=== PATIENT | female | born 1995 | race Two or more races ===

== ENCOUNTER 2018-06-29 13:37 | Inpatient (IN) | payer OTHER ==
[2018-06-29 14:10] VITALS: BMI 18.4
--- NOTE | 2018-06-29 15:45 | HP ---
COWS - Scale Resting Pulse: 0= [place] 80 or Below Sweatin= Chills/Flushing Restless Observation: 3= Extraneous Movement Pupil Size: 1= Pupils >than Normal Bone or Joint Aches: 2= Severe Diffuse Aches Runny Nose/ Eye Tearin= Runny Nose/Eyes GI Upset > 30mins: 2= Nausea/Diarrhea Tremor Observation: 2= Slight Tremor Visible Yawning Observation: 1= 1-2x During Session Anxiety or Irritability: 2=Irritable/Anxious Goose Flesh Skin: 0=Smooth Skin COWS Score: 16 Admission ROS S - HPI Chief Complaint: i need help to stop using heroin,cocaine,marijuana, Allergies/Adverse Reactions: Allergies Allergy/AdvReac Type Severity Reaction Status Date / Time penicillin G Allergy Severe Hives Verified 07/01/18 05:15 History of Present Illness: this 22 years old female with heroin,cocaine,marijuana dependence,seeking detox, withdrawal symptom, last detox 06/21/18 not completed,left on 06/22/18 anxiety.depression,insomnia weight loss injury to right ankle last week with scab formation and cellulitis s/p surgery for abscess of left hip 01/10 nicotine dependence Exam Limitations: No Limitations - Ebola screening Have you traveled outside of the country in the last 21 days: No Have you had contact with anyone from an Ebola affected area: No Have you been sick,other than usual withdrawal symptoms: No Do you have a fever: No - Review of Systems Constitutional: Chills, Loss of Appetite, Night Sweats, Changes in sleep, Unintentional Wgt. Loss EENT: reports: Tearing, Nose Congestion Respiratory: reports: No Symptoms reported Cardiac: reports: No Symptoms Reported GI: reports: Diarrhea, Nausea, Vomiting : reports: No Symptoms Reported Musculoskeletal: reports: Back Pain, Joint Pain, Muscle Pain, Joint Stiffness Integumentary: reports: Dryness Neuro: reports: Headache, Tremors Endocrine: reports: No Symptoms Reported Hematology: reports: No Symptoms Reported Psychiatric: reports: No Sypmtoms Reported, Judgement Intact, Mood/Affect Appropiate, Orientated x3 (anxiety,depression,), Agitated, Anxious, Depressed Patient History - Patient Medical History Hx Anemia: No Hx Asthma: No Hx Chronic Obstructive Pulmonary Disease (COPD): No Hx Cancer: No Hx Cardiac Disorders: No Hx Congestive Heart Failure: No Hx Hypertension: No Hx Hypercholesterolemia: No Hx Pacemaker: No HX Cerebrovascular Accident: No Hx Seizures: No Hx Dementia: No Hx Diabetes: No Hx Gastrointestinal Disorders: No Hx Liver Disease: No Hx Genitourinary Disorders: No Hx Sexually Transmitted Disorders: No Hx Renal Disease (ESRD): No Hx Thyroid Disease: No Hx Human Immunodeficiency Virus (HIV): No (last 01/10 negative) Hx Hepatitis C: No Hx Depression: Yes Hx Suicide Attempt: No Hx Bipolar Disorder: No Hx Schizophrenia: No Other Medical History: anxiet,depression,no suicidal,no homicidal - Patient Surgical History Past Surgical History: Yes Other Surgical History: s/p surgery for abscess left thigh - PPD History Previous Implant?: Yes Documented Results: Negative w/o proof Implanted On Prior R Admission?: No PPD to be Administered?: Yes - Reproductive History Patient is a Female of Child Bearing Age (11 -55 yrs old): Yes Last Menstrual Period: 06/11/18 Patient : No - Smoking Cessation Smoking history: Current every day smoker Have you smoked in the past 12 months: Yes Aproximately how many cigarettes per day: 20 Hx Chewing Tobacco Use: No Initiated information on smoking cessation: Yes 'Breaking Loose' booklet given: 06/29/18 - Substance & Tx. History Hx Alcohol Use: No Hx Substance Use: Yes Substance Use Type: Cocaine, Heroin, Tranquilizers Hx Substance Use Treatment: Yes (06/21/18 to 06/22/18 in [place] not completed) - Substances Abused Heroin Route: Injection Frequency: Daily Amount used: 20-30 bags Age of first use: 16 Date of Last Use: 06/29/18 Cocaine Route: Injection Frequency: Daily Amount used: $400 Age of first use: 12 Date of Last Use: 06/27/18 Marijuana Route: Smoking Frequency: Daily Amount used: $100 Age of first use: 9 Date of Last Use: 06/29/18 Family Disease History - Family Disease History Family History: Denies Admission Physical Exam S - Vital Signs Vital Signs: Vital Signs - 24 hr 06/29/18 13:57 Temperature 97.2 F L Pulse Rate 68 Respiratory 18 Rate Blood Pressure 133/77 - Physical General Appearance: Yes: Moderate Distress, Tremorous, Irritable, Sweating, Anxious HEENTM: Yes: Normal ENT Inspection, PIYUSH, Pharynx Normal, Nasal Congestion, Rhinorrhea Respiratory: Yes: Within Normal Limits, Lungs Clear, Normal Breath Sounds Neck: Yes: Within Normal Limits, Supple, Trachea in good position Breast: Yes: Breast Exam Deferred Cardiology: Yes: Within Normal Limits, Regular Rhythm, Regular Rate, S1, S2 Abdominal: Yes: Within Normal Limits, Normal Bowel Sounds, Non Tender, Flat Back: Yes: Muscle Spasm Musculoskeletal: Yes: Back pain, Joint Stiffness, Muscle Pain Extremities: Yes: Within Normal Limits, Normal Range of Motion, Tremors Neurological: Yes: supervisor braiding II-XII NML intact, Fully Oriented, Alert, Motor Strength 5/5 Integumentary: Yes: Dry, Track Miranda (scab formation with cellulitis of right ankle) Lymphatic: Yes: Within Normal Limits - Diagnostic (1) Opioid dependence with withdrawal Current Visit: No Status: Acute (2) Cocaine dependence Current Visit: Yes Status: Acute (3) Cannabis dependence Current Visit: Yes Status: Acute (4) Cellulitis Current Visit: Yes Status: Acute Qualifiers: Site of cellulitis of extremity: lower extremity (5) Insomnia secondary to depression with anxiety Current Visit: Yes Status: Acute (6) IV drug abuse Current Visit: No Status: Acute (7) Weight loss Current Visit: Yes Status: Acute Cleared for Admission [facility] - Detox or Rehab [facility] Level of Care: Medically Managed Detox Regimen/Protocol: Methadone [facility] Breath Alcohol Content Breath Alcohol Content: 0 Urine Pregancy Test - Result Urine Test Results: Negative- NO Line Present Urine Drug Screen - Results Drug Screen Negative: No Urine Drug Screen Results: THC-Marijuana, RISA-Cocaine, OPI-Opiates, BZO- Benzodiazepines, MTD-Methadone, OXY-Oxycodone, FEN-Fentanyl
[2018-06-29] MEDS ORDERED: MENTHOL/PHENOL 1 EACH UD MM PRN (15:59)
[2018-06-29] MEDS ORDERED: guaiFENesin/D-METHORPHAN HB 10 ML UNIT-DOSE CUPS PO PRN (15:59)
[2018-06-29] MEDS ORDERED: LOPERAMIDE HCL 2 MG CAPSULE PO PRN (15:59)
[2018-06-29] MEDS ORDERED: IBUPROFEN 400 MG TABLET (FP) PO PRN (15:59)
[2018-06-29] MEDS ORDERED: MAGNESIUM CITRATE 300 ML BOTTLE PO PRN (15:59)
[2018-06-29] MEDS ORDERED: MAGNESIUM HYDROX 2400MG/30ML ORAL SUSPENSION 30 ML CUP PO PRN (15:59)
[2018-06-29] MEDS ORDERED: P-EPHED 60MG/TRIPROLIDI 2.5MG TABLET PO PRN (15:59)
[2018-06-29] MEDS ORDERED: MAG HYDROX/AL HYDROX/SIMETH 30 ML UNIT-DOSE CUP PO PRN (15:59)
[2018-06-29] MEDS ORDERED: METHADONE HCL 10 MG TABLET (FOR DETOX USE ONLY) PO ONE ×2 (17:00→23:00)
[2018-06-29] MEDS: NICOTINE 21 MG/24 HOURS TOPICAL PATCH TD SCH (18:04)
[2018-06-29] MEDS: diazePAM 5 MG TABLET PO PRN ×2 (18:06→22:32)
[2018-06-29] MEDS ORDERED: MELATONIN 5 MG TABLETS PO PRN (22:00)
[2018-06-29] MEDS: THIAMINE HCL 100 MG TABLET (FP) PO SCH (22:31)
[2018-06-29] MEDS: BACITRACIN 15 GM TUBE TOPICAL OINTMENT TP SCH (22:32)
[2018-06-29] MEDS: SULFAMETHOXAZOLE/TRIMETHOPRIM 800MG/160MG D.S. TABLET PO SCH (22:32)
[2018-06-29] MEDS: ACETAMINOPHEN 325 MG TABLET (FP) PO PRN (23:49)
[2018-06-29] MEDS: hydrOXYzine PAMOATE 25 MG CAPSULE (FP) PO PRN (23:49)
[2018-06-30] MEDS: diazePAM 5 MG TABLET PO PRN ×5 (03:19→23:09)
[2018-06-30] MEDS: ACETAMINOPHEN 325 MG TABLET (FP) PO PRN (03:20)
[2018-06-30] MEDS: hydrOXYzine PAMOATE 25 MG CAPSULE (FP) PO PRN ×3 (04:50→22:17)
[2018-06-30] MEDS ORDERED: cloNIDine HCL 0.1 MG TABLET PO ONE (08:26)
[2018-06-30] MEDS ORDERED: BACITRACIN 0.9 GM PACKET ONE (09:26)
--- NOTE | 2018-06-30 09:53 | PN ---
[facility] COWS - Scale Resting Pulse: 0= [place] 80 or Below Sweatin= Chills/Flushing Restless Observation: 1= Difficult to Sit Still Pupil Size: 2= Moderately Dilated Bone or Joint Aches: 2= Severe Diffuse Aches Runny Nose/ Eye Tearin= Runny Nose/Eyes GI Upset > 30mins: 1= Stomach Cramp Tremor Observation of Outstretched Hands: 2= Slight Tremor Visible Yawning Observation: 1= 1-2x During Session Anxiety or Irritability: 2=Irritable/Anxious Goose Flesh Skin: 0=Smooth Skin COWS Score: 14 [facility] Progress Note (SOAP) Subjective: PATIENT C/O BODY ACHES, DIARRHEA, SHAKES, SWEATING. Objective: 06/30/18 09:51 Vital Signs Temperature 97.9 F 06/30/18 06:00 Pulse Rate 46 L 06/30/18 06:00 Respiratory Rate 20 06/30/18 06:00 Blood Pressure 109/54 L 06/30/18 06:00 O2 Sat by Pulse Oximetry (%) ALERT AND ORIENTED ANXIOUS, PACING IN HALLWAY SKIN +MOISTURE EXT FULL ROM, NO EDEMA AMB AD LOLIS REPEAT V/S BP 105/55, HR 64 Assessment: 06/30/18 09:53 WITHDRAWAL SYNDROME Plan: DETOX ORDERED CLONIDINE 0.1MG PO ONCE ENCOURAGE ORAL FLUIDS CONTINUE TO MONITOR CLINICALLY
[2018-06-30] MEDS ORDERED: METHADONE HCL 10 MG TABLET (FOR DETOX USE ONLY) PO ONE (10:00)
[2018-06-30 10:20] LABS: HEMATOCRIT 36.5 % (32.4-45.2); HEMOGLOBIN 11.8 GM/dL (10.7-15.3); MCH 26.6 pg (25.7-33.7); MCHC 32.3 g/dl (32.0-36.0); MEAN CELL VOLUME 82.3 fl (80-96); MEAN PLT VOLUME 7.2 fl (7.5-11.1); PLATELET COUNT 307 K/MM3 (134-434); RBC 4.43 M/mm3 (3.60-5.2); RDW 15.2 % (11.6-15.6); WHITE BLOOD COUNT 6.5 K/mm3 (4.0-10.0)
[2018-06-30] MEDS: BACITRACIN 15 GM TUBE TOPICAL OINTMENT TP SCH ×2 (10:26→23:10)
[2018-06-30] MEDS: PRENATAL VITAMINS W/ FOLIC ACID TABLET (FP) PO SCH (10:27)
[2018-06-30] MEDS: SULFAMETHOXAZOLE/TRIMETHOPRIM 800MG/160MG D.S. TABLET PO SCH ×2 (10:27→22:18)
[2018-06-30] MEDS: NICOTINE 21 MG/24 HOURS TOPICAL PATCH TD SCH (10:30)
[2018-06-30 10:41] LABS: URINE APPEARANCE SLCLOUDY; URINE BILIRUBIN NEGATIVE (<2.0 mg/dL); URINE COLOR YELLOW; URINE GLUCOSE (UA) NEGATIVE (NEGATIVE); URINE KETONE NEGATIVE (NEGATIVE); URINE LEUK ESTERASE NEGATIVE (NEGATIVE); URINE NITRITE NEGATIVE (NEGATIVE); URINE PROTEIN NEGATIVE (NEGATIVE)
[2018-06-30 11:10] LABS: ALBUMIN 3.4 g/dl (3.4-5.0); ALK PHOS 86 U/L (45-117); ANION GAP 7 MMOL/L (8-16); BILIRUBIN,TOTAL 0.4 mg/dL (0.2-1); BLOOD UREA NITROGEN 7 mg/dL (7-18); CALCIUM 8.8 mg/dL (8.5-10.1); CHLORIDE 103 mmol/L (98-107); CO2 27 mmol/L (21-32); CREATININE 0.7 mg/dL (0.55-1.3); GLUCOSE,RANDOM 82 mg/dL (74-106); POTASSIUM 3.7 mmol/L (3.5-5.1); SGOT/AST 13 U/L (15-37); SGPT/ALT 15 U/L (13-61); SODIUM 138 mmol/L (136-145); TOT PROT 7.6 g/dl (6.4-8.2)
[2018-06-30] MEDS ORDERED: FLU VACCINE QUAD 60 MCG/0.5 ML (MDV 18-19) IM ONE (12:00)
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
--- NOTE | 2018-06-30 17:29 | EKG ---
Test Reason : Blood Pressure : / mmHG Vent. Rate : 068 BPM Atrial Rate : 068 BPM P-R Int : 148 ms QRS Dur : 084 ms QT Int : 390 ms P-R-T Axes : 033 062 037 degrees QTc Int : 414 ms NORMAL SINUS RHYTHM NORMAL ECG NO PREVIOUS ECGS AVAILABLE CLINICAL CORRELATION IS RECOMMENDED Confirmed by MARLINE PADILLA, ANTWON ([id number]) on 06/30/2018 5:29:47 PM Referred By: Confirmed By:ANTWON HORAN MD
[2018-06-30] MEDS: NICOTINE POLACRILEX 2 MG GUM BC PRN (17:50)
--- NOTE | 2018-06-30 18:04 | PN ---
[facility] Progress Note Note: Informed by ANNABELLE Coker that patient states has a hx of seizure for which she takes Keppra and Gabapentin. Pt admits to not telling anyone prior to now, stated "I did not want it to be an issue for me not to get in". Pt was educated that Seizure is not a contr indication for detox. Keppra and Gabapentin will be ordered and Keppra level checked in the morning.
[2018-06-30] MEDS: QUEtiapine FUMARATE 100 MG TABLET (FP) PO SCH (22:17)
[2018-06-30] MEDS: GABAPENTIN 300 MG CAPSULE (FP) PO SCH (22:17)
[2018-06-30] MEDS: levETIRAcetam 500 MG TABLET (FP) PO SCH (22:17)
[2018-06-30] MEDS: THIAMINE HCL 100 MG TABLET (FP) PO SCH (23:10)
[2018-06-30] MEDS ORDERED: LORazepam 2 MG/ML SDV VIAL ONE (23:42)
--- NOTE | 2018-07-01 00:10 | PN ---
[facility] Progress Note Note: Patient identified earlier today w/ a hx of seizures and non-compliance w/ Keppra. Patient received one dose Keppra earlier today. Patient received valium at 23:09 as part of standard medications, prior to initial seizure. Responded to rapid response to see patient. Patient had a seizure prior to arrival and then patient had an additional six witnessed tonic/clonic seizures, each lasting approximately 15 seconds, within a 30 min time span. Was immediately alert during the post-ictal phase. Vital Signs 06/30/18 06/30/18 17:12 22:59 Temperature 97.9 F 98.9 F Pulse Rate 65 87 Respiratory 18 18 Rate Blood Pressure 125/76 131/90 Blood pressure during seizure activity w/o appreciable increase. O2 sat = 99%. BGM= 103. EMS medicated patient w/ Versed and transported to [facility]. Patient was alert and cooperative at time of transport. Report given to Dr. Beverly at [facility].
[2018-07-01] MEDS ORDERED: METHADONE HCL 5 MG TABLET (FOR DETOX USE ONLY) PO ONE (10:00)
[2018-07-01] MEDS: PRENATAL VITAMINS W/ FOLIC ACID TABLET (FP) PO SCH (10:03)
[2018-07-01] MEDS: BACITRACIN 15 GM TUBE TOPICAL OINTMENT TP SCH ×2 (10:03→22:27)
[2018-07-01] MEDS: SULFAMETHOXAZOLE/TRIMETHOPRIM 800MG/160MG D.S. TABLET PO SCH ×2 (10:04→22:22)
[2018-07-01] MEDS: diazePAM 5 MG TABLET PO PRN ×3 (10:04→20:05)
[2018-07-01] MEDS: GABAPENTIN 300 MG CAPSULE (FP) PO SCH ×2 (10:04→22:22)
[2018-07-01] MEDS: levETIRAcetam 500 MG TABLET (FP) PO SCH ×2 (10:04→22:22)
[2018-07-01] MEDS: NICOTINE 21 MG/24 HOURS TOPICAL PATCH TD SCH (10:07)
[2018-07-01] MEDS ORDERED: BACLOFEN 10 MG TABLET (FP) PO ONE (10:33)
[2018-07-01] MEDS ORDERED: cloNIDine HCL 0.1 MG TABLET PO ONE (11:59)
[2018-07-01] MEDS: hydrOXYzine PAMOATE 25 MG CAPSULE (FP) PO PRN ×2 (12:00→20:05)
--- NOTE | 2018-07-01 15:08 | PN ---
S COWS - Scale Resting Pulse: 1= RI 81-100 Sweatin= Chills/Flushing Restless Observation: 1= Difficult to Sit Still Pupil Size: 1= Pupils >than Normal Bone or Joint Aches: 2= Severe Diffuse Aches Runny Nose/ Eye Tearin= Runny Nose/Eyes GI Upset > 30mins: 1= Stomach Cramp Tremor Observation of Outstretched Hands: 2= Slight Tremor Visible Yawning Observation: 1= 1-2x During Session Anxiety or Irritability: 1=Feels Anxious/Irritable Goose Flesh Skin: 0=Smooth Skin COWS Score: 13 S Progress Note (SOAP) Subjective: joints pain body aches sweat tremor Objective: 07/01/18 15:07 Vital Signs Temperature 98.2 F 07/01/18 14:32 Pulse Rate 92 H 07/01/18 14:32 Respiratory Rate 18 07/01/18 14:32 Blood Pressure 117/66 07/01/18 14:32 O2 Sat by Pulse Oximetry (%) Laboratory Last Values WBC 6.5 K/mm3 (4.0-10.0) 06/30/18 08:00 RBC 4.43 M/mm3 (3.60-5.2) 06/30/18 08:00 Hgb 11.8 GM/dL (10.7-15.3) 06/30/18 08:00 Hct 36.5 % (32.4-45.2) 06/30/18 08:00 MCV 82.3 fl (80-96) 06/30/18 08:00 MCH 26.6 pg (25.7-33.7) 06/30/18 08:00 MCHC 32.3 g/dl (32.0-36.0) 06/30/18 08:00 RDW 15.2 % (11.6-15.6) 06/30/18 08:00 Plt Count 307 K/MM3 (134-434) 06/30/18 08:00 MPV 7.2 fl (7.5-11.1) L 06/30/18 08:00 Sodium 138 mmol/L (136-145) 06/30/18 08:00 Potassium 3.7 mmol/L (3.5-5.1) 06/30/18 08:00 Chloride 103 mmol/L (98-107) 06/30/18 08:00 Carbon Dioxide 27 mmol/L (21-32) 06/30/18 08:00 Anion Gap 7 MMOL/L (8-16) L 06/30/18 08:00 BUN 7 mg/dL (7-18) 06/30/18 08:00 Creatinine 0.7 mg/dL (0.55-1.3) 06/30/18 08:00 Creat Clearance w eGFR > 60 (>60) 06/30/18 08:00 POC Glucometer 103 UNITS (80-120) 06/30/18 23:42 Random Glucose 82 mg/dL (74-106) 06/30/18 08:00 Calcium 8.8 mg/dL (8.5-10.1) 06/30/18 08:00 Total Bilirubin 0.4 mg/dL (0.2-1) 06/30/18 08:00 AST 13 U/L (15-37) L 06/30/18 08:00 ALT 15 U/L (13-61) 06/30/18 08:00 Alkaline Phosphatase 86 U/L (45-117) 06/30/18 08:00 Total Protein 7.6 g/dl (6.4-8.2) 06/30/18 08:00 Albumin 3.4 g/dl (3.4-5.0) 06/30/18 08:00 Urine Color Yellow 06/29/18 21:20 Urine Appearance Slcloudy 06/29/18 21:20 Urine pH 6.0 (5.0-8.0) 06/29/18 21:20 Ur Specific [place] 1.023 (1.010-1.035) 06/29/18 21:20 Urine Protein Negative (NEGATIVE) 06/29/18 21:20 Urine Glucose (UA) Negative (NEGATIVE) 06/29/18 21:20 Urine Ketones Negative (NEGATIVE) 06/29/18 21:20 Urine Blood Negative (NEGATIVE) 06/29/18 21:20 Urine Nitrite Negative (NEGATIVE) 06/29/18 21:20 Urine Bilirubin Negative (<2.0 mg/dL) 06/29/18 21:20 Urine Urobilinogen 2.0 mg/dL (0.2-1.0) H 06/29/18 21:20 Ur Leukocyte Esterase Negative (NEGATIVE) 06/29/18 21:20 RPR Titer Nonreactive (NONREACTIVE) 06/30/18 08:00 lab noted Assessment: 07/01/18 15:08 withdrawal sx Plan: continue detox
--- NOTE | 2018-07-01 15:13 | PN ---
[facility] Progress Note Note: around 1430 patient had seizure fall on the floor total 7 seizure few seconds each and few seconds in between ativan 2 mg IM given ambulance called and attempted to give report to the ERfrom 1513 pm to according to the roommate that the patient fell on the floor face down no visible injury noted, recommendation: 1. move room near nurse station 2. fall protocol #1
[2018-07-01] MEDS ORDERED: ZOLPIDEM TARTRATE 5 MG TABLET PO PRN (20:33)
[2018-07-01] MEDS: QUEtiapine FUMARATE 100 MG TABLET (FP) PO SCH (22:22)
[2018-07-01] MEDS: THIAMINE HCL 100 MG TABLET (FP) PO SCH (22:22)
[2018-07-02] MEDS ORDERED: LORazepam 2 MG/ML SDV VIAL IM ONE ×2 (00:58→04:55)
--- NOTE | 2018-07-02 01:30 | PN ---
[facility] Progress Note Note: MD'S NOTE: CALLED TO SEE THE PT. AT ABOUT 12:50AM WHO CLAIMS THAT SHE IS HAVING SEIZURES VERY FREQUENTLY AND INSISTS THAT SHE NEEDS ATIVAN BY IV/IM VERY FREQUENTLY. O/E: THE PT. IS MORALES X 3 AND NOT IN DISTRESS. SITTING ON THE CHAIR COMFORTABLY AND TALKING. SUDDENLY, SHE HAD AN EPISODE OF "SEIZURE" ACTIVITY THAT LASTED FOR ABOUT 1 MINUTE AND SHE GAINED FULL CONSCIOUSNESS, STOOD UP AND STARTED TALKING IMMEDIATELY! SINCE SIMILAR EPISODES ARE HAPPENING SEVERAL TIMES, SHE HAS BEEN TRANSFERRED TO THE ER AFTER CALLING 911 FOR CLOSE MONITORING. IMPRESSION: PSEUDO/WITHDRAWAL SEIZURES PLANS: DR. MOSS (ER ATTENDING) WAS MADE AWARE OF THE EVENTS FOR FURTHER MANAGEMENT. PROVIDER: ABDULKADIR GARCES MD
[2018-07-02] MEDS: hydrOXYzine PAMOATE 25 MG CAPSULE (FP) PO PRN (07:18)
[2018-07-02] MEDS ORDERED: CYCLOBENZAPRINE HCL 5 MG TABLET PO SCH (07:30)
[2018-07-02] MEDS ORDERED: hydrOXYzine PAMOATE 50 MG CAPSULE (FP) PO PRN (07:40)
[2018-07-02] MEDS: diazePAM 5 MG TABLET PO PRN ×2 (08:55→13:59)
[2018-07-02] MEDS: NICOTINE POLACRILEX 2 MG GUM BC PRN (08:57)
--- NOTE | 2018-07-02 08:59 | PN ---
Psychiatric Progress Note Vital Signs: Vital Signs Period Temp Pulse Resp BP Sys/Amaro Pulse Ox Last 24 Hr 98.1 F-98.6 F 74-95 18-22 102-123/65-93 Date of Session: 07/02/18 Chief Complaint:: Anxiety, irritability, insomnia HPI: Patient anxious, reports severe anxiety, restlessness, irritability, insomnia, asking for Ambien order and medications for anxiety. Denies suicidal , homicidal ideations. Patient with history of Seizures. Current Medications: Active Medications Generic Name Dose Route Start Last Admin Trade Name Freq PRN Reason Stop Dose Admin Acetaminophen 650 mg 06/29/18 15:59 06/30/18 03:20 Tylenol - PO 650 mg Q4H PRN Administration FEVER Al Hydroxide/Mg Hydroxide 30 ml 06/29/18 15:59 Mylanta Oral Suspension - PO Q6H PRN DYSPEPSIA Bacitracin 1 applic 06/29/18 22:00 07/01/18 22:27 Bacitracin - TP 1 applic BID ANTHONY Administration Cyclobenzaprine HCl 5 mg 07/02/18 07:30 Cyclobenzaprine Hcl PO PRN ANTHONY Diazepam 10 mg 06/29/18 15:59 07/02/18 08:55 Valium - PO 07/02/18 15:58 10 mg Q4H PRN Administration WITHDRAWAL(CONT SUBST) Duloxetine HCl 40 mg 07/02/18 10:00 Cymbalta - PO DAILY ANTHONY Eucalyptus/Menthol/Phenol/Sorbitol 1 each 06/29/18 15:59 Cepastat Lozenge - MM Q4H PRN SORE THROAT Gabapentin 300 mg 06/30/18 22:00 07/01/18 22:22 Neurontin - PO 300 mg BID ANTHONY Administration Guaifenesin 10 ml 06/29/18 15:59 Robitussin Dm - PO Q6H PRN COUGH Hydroxyzine Pamoate 50 mg 07/02/18 07:40 Vistaril - PO Q4H PRN AGITATION Ibuprofen 400 mg 06/29/18 15:59 06/29/18 18:03 Motrin - PO 400 mg Q6H PRN Administration PAIN LEVEL 4-6 Levetiracetam 500 mg 06/30/18 22:00 07/01/18 22:22 Keppra - PO 500 mg BID ANTHONY Administration Loperamide HCl 4 mg 06/29/18 15:59 Imodium - PO Q6H PRN DIARRHEA Magnesium Citrate 300 ml 06/29/18 15:59 Citroma - PO Q48H PRN CONSTIPATION Magnesium Hydroxide 30 ml 06/29/18 15:59 Milk Of Magnesia - PO DAILY PRN CONSTIPATION Melatonin 5 mg 06/29/18 22:00 06/29/18 23:49 Melatonin PO 5 mg HS PRN Administration INSOMNIA Methadone HCl 5 mg 07/04/18 06:00 Dolophine - PO 07/04/18 06:01 ONCE@0600 ONE Methadone HCl 15 mg 07/02/18 10:00 Dolophine - PO 07/02/18 10:01 ONCE ONE Methadone HCl 10 mg 07/03/18 10:00 Dolophine - PO 07/03/18 10:01 ONCE ONE Nicotine 21 mg 06/29/18 17:00 07/01/18 10:07 Nicoderm Patch - TD 21 mg DAILY ANTHONY Administration Nicotine Polacrilex 2 mg 06/29/18 15:59 06/30/18 17:50 Nicorette Gum - BC 2 mg Q2H PRN Administration NICOTINE REPLACEMENT RX Multivit/Folic Acid/Iron 1 tab 06/30/18 10:00 07/01/18 10:03 Vitamins (Sjr) - PO 1 tab DAILY ANTHONY Administration Pseudoephedrine/Triprolidine 1 combo 06/29/18 15:59 Actifed - PO TID PRN NASAL CONGESTION Quetiapine Fumarate 100 mg 07/02/18 14:00 Seroquel - PO TID ANTHONY Thiamine HCl 100 mg 06/29/18 22:00 07/01/18 22:22 Vitamin B1 - PO 100 mg HS ANTHONY Administration Trimethoprim/Sulfamethoxazole 1 each 06/29/18 22:00 07/01/18 22:22 Bactrim Ds - PO 1 each BID ANTHONY Administration Zolpidem Tartrate 10 mg 07/01/18 20:33 07/01/18 22:22 Ambien - PO 10 mg HS PRN Administration INSOMNIA Medication(s) Change(s): Cymbalta 40mg poqd. Seroquel 100mg po tid. Vistaril 50mg po prn q4 for anxiety Provider note:: Patient has been seeing by Dr. Mills on 06/30/18, has a history of Bipolar Disorder, reports lamotrigine 25 mg/day + citalopram 10 mg/day + clonazepam 0.5 mg/day on 05/10/18. NO refills afterwards. Ms Rocky marinoledges total non-adherence to psychiatric OPD care. Denies history of suicide attempts. Patient asking fort Valium and Ambien, loud, restless but redirectional and cooperative. Mental Status Exam - Mental Status Exam Alert and Oriented to: Person Cognitive Function: Fair Patient Appearance: Unkempt Mood: Anxious Affect: Labile Patient Behavior: Cooperative Speech Pattern: Appropriate Voice Loudness: Normal Thought Process: Goal Oriented Thought Disorder: Being Controlled Hallucinations: Denies Suicidal Ideation: Denies Homicidal Ideation: Denies Insight/Judgement: Fair Sleep: Difficulty falling asleep Appetite: Weight loss Muscle strength/Tone: Normal Gait/Station: Normal Additional Comments: Cymbalta 40mg poqd. Seroquel 100mg po tid. Vistaril 50mg po prn q4 for anxiety Psychiatric Treatment Plan - Problem List (1) Cannabis dependence Current Visit: Yes (2) Cocaine dependence Current Visit: Yes (3) Insomnia secondary to depression with anxiety Current Visit: Yes (4) Nicotine dependence Current Visit: Yes (5) Weight loss Current Visit: Yes (6) Alcohol dependence Current Visit: No Qualifiers: Substance use status: uncomplicated Qualified Code(s): F10.20 - Alcohol dependence, uncomplicated (7) Benzodiazepine dependence Current Visit: No (8) Opioid dependence with withdrawal Current Visit: No (9) Seizure Current Visit: No (10) Substance induced mood disorder Current Visit: No Initial treatment plan: Cymbalta 40mg poqd. Seroquel 100mg po tid. Vistaril 50mg po prn q4 for anxiety
[2018-07-02] MEDS ORDERED: BACITRACIN 0.9 GM PACKET TP SCH (10:00)
[2018-07-02] MEDS ORDERED: METHADONE HCL 5 MG TABLET (FOR DETOX USE ONLY) PO ONE (10:00)
[2018-07-02] MEDS ORDERED: DULoxetine HCL 20 MG CAPSULE.DR (FP) PO SCH (10:00)
[2018-07-02] MEDS: GABAPENTIN 300 MG CAPSULE (FP) PO SCH (10:21)
[2018-07-02] MEDS: PRENATAL VITAMINS W/ FOLIC ACID TABLET (FP) PO SCH (10:21)
[2018-07-02] MEDS: levETIRAcetam 500 MG TABLET (FP) PO SCH (10:21)
[2018-07-02] MEDS ORDERED: CYCLOBENZAPRINE HCL 5 MG TABLET PO PRN (10:23)
[2018-07-02] MEDS: SULFAMETHOXAZOLE/TRIMETHOPRIM 800MG/160MG D.S. TABLET PO SCH (10:23)
[2018-07-02] MEDS: NICOTINE 21 MG/24 HOURS TOPICAL PATCH TD SCH (10:24)
[2018-07-02 12:53] VITALS: BP 111/59; PULSE 92; TEMP 96.2
[2018-07-02] MEDS ORDERED: QUEtiapine FUMARATE 100 MG TABLET (FP) PO SCH (14:00)
--- NOTE | 2018-07-02 17:22 | DS ---
[facility] Detox Discharge Summary Admission Date: 06/29/18 Discharge Date: 07/02/18 - History Present History: Alcohol Dependence Additional Comments: 22 years old female admitted 06/29/18 for opiate withdrawal sx patient stated that she has seizure since age 14 denies head trauma denies alcohol related seizure treated with mary kwon admitted none adherence with the medication patient demands more valium before during and after the seizure multiple pseudo seizure , patient had pseudo seizure at the same time same place (her room) no visible injury noted, patient is alert deneis sucidal ideation denies homocidal ideation "I do not want to hurt myself, you can not stop my valiuim" it happed again around the same time after been told the volium prn ended today "You do not give me valium I am going to have seizure" patient walk back to her room one male patient yell out loud "she is having a seizur" observed patient laying on floor twisting, patient is able to carry conversation with the staff during and after the seizure team approach discuss unit rule and regulation about no physical contact patient continue demanding more valium, patient is out of control disturb therapeutic environment, disturb - Physical Exam Results Vital Signs: Vital Signs Temperature 96.2 F L 07/02/18 13:21 Pulse Rate 92 H 07/02/18 13:21 Respiratory Rate 20 07/02/18 13:21 Blood Pressure 111/59 L 07/02/18 13:21 O2 Sat by Pulse Oximetry (%) Pertinent Admission Physical Exam Findings: opkiate withdrawal sx Vital Signs Temperature 96.2 F L 07/02/18 13:21 Pulse Rate 92 H 07/02/18 13:21 Respiratory Rate 20 07/02/18 13:21 Blood Pressure 111/59 L 07/02/18 13:21 O2 Sat by Pulse Oximetry (%) Laboratory Tests 06/29/18 06/30/18 06/30/18 21:20 08:00 08:00 WBC 6.5 RBC 4.43 Hgb 11.8 Hct 36.5 MCV 82.3 MCH 26.6 MCHC 32.3 RDW 15.2 Plt Count 307 MPV 7.2 L Sodium 138 Potassium 3.7 Chloride 103 Carbon Dioxide 27 Anion Gap 7 L BUN 7 Creatinine 0.7 Creat Clearance w eGFR > 60 POC Glucometer Random Glucose 82 Calcium 8.8 Total Bilirubin 0.4 AST 13 L ALT 15 Alkaline Phosphatase 86 Total Protein 7.6 Albumin 3.4 Urine Color Yellow Urine Appearance Slcloudy Urine pH 6.0 Ur Specific [place] 1.023 Urine Protein Negative Urine Glucose (UA) Negative Urine Ketones Negative Urine Blood Negative Urine Nitrite Negative Urine Bilirubin Negative Urine Urobilinogen 2.0 H Ur Leukocyte Esterase Negative RPR Titer 06/30/18 06/30/18 08:00 23:42 WBC RBC Hgb Hct MCV MCH MCHC RDW Plt Count MPV Sodium Potassium Chloride Carbon Dioxide Anion Gap BUN Creatinine Creat Clearance w eGFR POC Glucometer 103 Random Glucose Calcium Total Bilirubin AST ALT Alkaline Phosphatase Total Protein Albumin Urine Color Urine Appearance Urine pH Ur Specific [place] Urine Protein Urine Glucose (UA) Urine Ketones Urine Blood Urine Nitrite Urine Bilirubin Urine Urobilinogen Ur Leukocyte Esterase RPR Titer Nonreactive lab noted - Treatment Hospital Course: Detox Protocol Followed, Responded well Patient has Accepted a Rehab Referral to: as per arranged by the counselor - Medication Discharge Medications: Ambulatory Orders Gabapentin 300 cap PO BID 06/30/18 Keppra - 500 tab PO BID 06/30/18 Duloxetine HCl [Cymbalta -] 30 mg PO BID #30 capsule. 07/02/18 Duloxetine HCl [Cymbalta -] 40 mg PO DAILY #30 capsule. 07/02/18 Duloxetine HCl [Cymbalta -] 40 mg PO ONCE #2 capsule. 07/02/18 Quetiapine Fumarate [Seroquel] 100 mg PO TID #90 tablet 07/02/18 Quetiapine Fumarate [Seroquel] 100 mg PO TID #90 tablet 07/02/18 Sulfamethoxazole/Trimethoprim [Bactrim DS -] 1 each PO BID #10 tablet 07/02/18 levETIRAcetam [Keppra -] 500 mg PO BID #60 tablet 07/02/18 - Diagnosis (1) Nicotine dependence Status: Acute Qualifiers: Nicotine product type: cigarettes Substance use status: in withdrawal Qualified Code(s): F17.213 - Nicotine dependence, cigarettes, with withdrawal (2) Opioid dependence with withdrawal Status: Acute (3) Weight loss Status: Acute - AMA Did Patient Leave Against Medical Advice: No
[2018-07-03] MEDS ORDERED: METHADONE HCL 10 MG TABLET (FOR DETOX USE ONLY) PO ONE (10:00)
[2018-07-04] MEDS ORDERED: METHADONE HCL 5 MG TABLET (FOR DETOX USE ONLY) PO ONE (06:00)
== END 2018-07-02 15:20 | disposition left against medical advice (07) | DRG 773 ==
LOC: YASAS 13:37 → Y6N 15:46
PROC: HZ2ZZZZ Detoxification Services for Substance Abuse Treatment (ICD-10-PCS; principal; 2018-06-29)
DX: F11.23 Opioid dependence with withdrawal (principal); F10.20 Alcohol dependence, uncomplicated; F13.20 Sedative, hypnotic or anxiolytic dependence, uncomplicated; F14.10 Cocaine abuse, uncomplicated; F12.20 Cannabis dependence, uncomplicated; F17.213 Nicotine dependence, cigarettes, with withdrawal; F19.24 Other psychoactive substance dependence with psychoactive substance-induced mood disorder; F51.05 Insomnia due to other mental disorder; F41.8 Other specified anxiety disorders; F32.9 Major depressive disorder, single episode, unspecified; G40.909 Epilepsy, unspecified, not intractable, without status epilepticus; L03.115 Cellulitis of right lower limb; R63.4 Abnormal weight loss; Z68.1 Body mass index [BMI] 19.9 or less, adult; Z88.0 Allergy status to penicillin; F91.8 Other conduct disorders; Z91.19 Patient's noncompliance with other medical treatment and regimen
CPT/HCPCS: 36415; 80053; 80177; 81003; 82962; 85027; 86593; 90688; 93005; 93010; G0008; J0475; J0735

== ENCOUNTER 2018-07-01 00:17 | Emergency (ER) | payer OTHER ==
[2018-07-01] MEDS ORDERED: levETIRAcetam 500 MG/5 ML INJECTION VIAL IVPB ONE ×2 (00:19→00:28)
[2018-07-01] MEDS ORDERED: FOLIC ACID INJECTION - 1 MG, THIAMINE HCL 100 MG, MULTIVIT INJECTION ADULT 10 ML in SOD... IVPB ONE (00:29)
--- NOTE | 2018-07-01 00:32 | PDOC ---
Attending Attestation - Resident Resident Name: Jovita Nunez - ED Attending Attestation I have performed the following: I have examined & evaluated the patient, The case was reviewed & discussed with the resident, I agree w/resident's findings & plan - HPI HPI: 07/01/18 01:52 Pt comes with "Seizures" x 6; easch lasting 10 seconds at the [facility] facility. 07/01/18 01:53 Pt has no seizures in the ER; whatever activity she is having, is accompanied by her getting up after the 10 seconds and demanding meds for her seizures. - Physicial Exam PE: 07/01/18 01:50 Agree with resident. Pt is afebrile. She has normal heart and lungs and soft abd. She has multiple tattoos and is afebrile. Pt is drowsy secondary to the 10 IM valium that was given to her by EMS en route to the ER. Labs yesterday at [facility] and today in the ER are normal. - Medical Decision Making 07/01/18 01:49 We witnessed pt's multiple pseudo seizures. She keeps asking for more benzos. Labs normal. She was loaded with IV keppra 1g and she is stable to return to [facility]. 07/01/18 01:54 Pt jumped out of bed multiple times. 07/01/18 02:32 Pt ambulating about trying to egt back to [facility]. We explained to her that and ambulance needs to take her there.
[2018-07-01] MEDS ORDERED: SODIUM CHLORIDE 0.9% 500 ML INFUS.BAG IV ONE (00:50)
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
[2018-07-01 01:02] LABS: BASO % 0.9 % (0-2.0); EOS % 2.9 % (0-4.5); HEMATOCRIT 36.4 % (32.4-45.2); HEMOGLOBIN 11.9 GM/dL (10.7-15.3); LYMPH % 41.1 % (8-40); MCH 26.9 pg (25.7-33.7); MCHC 32.7 g/dl (32.0-36.0); MEAN CELL VOLUME 82.1 fl (80-96); MEAN PLT VOLUME 7.1 fl (7.5-11.1); MONO % 8.5 % (3.8-10.2); NEUT % 46.6 % (42.8-82.8); PLATELET COUNT 336 K/MM3 (134-434); RBC 4.44 M/mm3 (3.60-5.2); RDW 15.1 % (11.6-15.6); WHITE BLOOD COUNT 6.1 K/mm3 (4.0-10.0)
[2018-07-01] MEDS ORDERED: LORazepam 2 MG/ML SDV VIAL ONE (01:02)
[2018-07-01 01:15] VITALS: BMI 40.6
[2018-07-01 01:16] LABS: INR 1.01 (0.83-1.09); PROTHROMBIN TIME (PATIENT) 11.9 SEC (9.7-13.0)
[2018-07-01 01:28] LABS: ALBUMIN 3.6 g/dl (3.4-5.0); ALK PHOS 92 U/L (45-117); ANION GAP 6 MMOL/L (8-16); BILIRUBIN,TOTAL 0.2 mg/dL (0.2-1); BLOOD UREA NITROGEN 6 mg/dL (7-18); CHLORIDE 104 mmol/L (98-107); CO2 29 mmol/L (21-32); CREATININE 0.8 mg/dL (0.55-1.3); GLUCOSE,RANDOM 83 mg/dL (74-106); SGOT/AST 15 U/L (15-37); SGPT/ALT 17 U/L (13-61); SODIUM 139 mmol/L (136-145); TOT PROT 8.2 g/dl (6.4-8.2)
[2018-07-01 02:49] VITALS: BP 110/78; PULSE 89; TEMP 98.5
--- NOTE | 2018-07-02 11:03 | EKG ---
Test Reason : Blood Pressure : / mmHG Vent. Rate : 088 BPM Atrial Rate : 088 BPM P-R Int : 128 ms QRS Dur : 086 ms QT Int : 384 ms P-R-T Axes : 044 052 040 degrees QTc Int : 464 ms NORMAL SINUS RHYTHM POSSIBLE LEFT ATRIAL ENLARGEMENT BORDERLINE ECG WHEN COMPARED WITH ECG OF 29-JUN-2018 17:18, NO SIGNIFICANT CHANGE WAS FOUND Confirmed by TATE AUGUST MD ([id number]) on 07/02/2018 11:03:36 AM Referred By: Confirmed By:TATE AUGUST MD
== END 2018-07-01 03:21 ==
LOC: JER 00:17
PROC: 3E033NZ Introduction of Analgesics, Hypnotics, Sedatives into Peripheral Vein, Percutaneous Approach (ICD-10-PCS; principal; 2018-07-01)
PROC: 3E033GC Introduction of Other Therapeutic Substance into Peripheral Vein, Percutaneous Approach (ICD-10-PCS; 2018-07-01)
DX: F11.23 Opioid dependence with withdrawal (principal); F10.230 Alcohol dependence with withdrawal, uncomplicated; F13.20 Sedative, hypnotic or anxiolytic dependence, uncomplicated; F12.20 Cannabis dependence, uncomplicated; F17.210 Nicotine dependence, cigarettes, uncomplicated; Z88.0 Allergy status to penicillin
CPT/HCPCS: 36415; 80053; 84703; 85025; 85610; 86850; 86900; 86901; 93005; 93010; 96374; 96375; 99283-25; J7030

== ENCOUNTER 2018-07-01 03:50 | Emergency (ER) | payer OTHER ==
--- NOTE | 2018-07-01 04:03 | PDOC ---
History of Present Illness - General Stated Complaint: SEIZURES Time Seen by Provider: 07/01/18 03:57 History Source: Patient, EMS Exam Limitations: No Limitations - History of Present Illness Initial Comments: 07/01/18 03:58 This is a 22 YOF with h/o seizure disorder (supposed to be taking Keppra) who returns to the ED just after discharge from our ED to [facility], now BIBEMS for repeated episodes of reported seizure-like activity. EMS was instructed by their fitting room supervisor to bring her back to the ED for the repeated episode. EMS notes non-traumatic episode which resolved spontaneously without medication en route. They deny any additional events while in the ambulance. The patient herself is agitated and uncooperative, states she wants to go back to [facility] or be discharged to outside. She is unsteady on her feet and refuses to go to hospital bed. Past History - Past Medical History Allergies/Adverse Reactions: Allergies Allergy/AdvReac Type Severity Reaction Status Date / Time penicillin G Allergy Severe Hives Verified 07/01/18 05:15 Home Medications: Ambulatory Orders Gabapentin 300 cap PO BID 06/30/18 Keppra - 500 tab PO BID 06/30/18 Anemia: No Asthma: No Cancer: No Cardiac Disorders: No CVA: No COPD: No CHF: No Dementia: No Diabetes: No GI Disorders: No Disorders: No HTN: No Hypercholesterolemia: No Kidney Stones: No Liver Disease: No Psychiatric Problems: Yes (DEPRESSION, BIPOLAR) Seizures: No Thyroid Disease: No - Surgical History Abdominal Surgery: No Appendectomy: No Cardiac Surgery: No Cholecystectomy: No Lung Surgery: No Neurologic Surgery: No Orthopedic Surgery: No - Reproductive History PID: No - Immunization History Immunization Up to Date: Yes - Suicide/Smoking/Psychosocial Hx Smoking History: Current every day smoker Have you smoked in the past 12 months: Yes Number of Cigarettes Smoked Daily: 20 'Breaking Loose' booklet given: 06/29/18 Hx Alcohol Use: No Drug/Substance Use Hx: Yes Substance Use Type: Cocaine, Heroin, Tranquilizers Hx Substance Use Treatment: Yes (06/21/18 to 06/22/18 in [place] not completed) Review of Systems - Review of Systems Able to Perform ROS?: Yes Constitutional: No: Chills, Fever, Unexplained wgt Loss HEENTM: No: Nose Congestion, Throat Pain Respiratory: No: Cough, Shortness of Breath Cardiac (ROS): No: Chest Pain, Palpitations ABD/GI: No: Constipated, Diarrhea, Nausea, Vomiting : No: Burning, Dysuria Musculoskeletal: No: Back Pain, Neck Pain Integumentary: No: Bruising, Rash Neurological: Yes: Seizure. No: Headache, Numbness, Tingling, Weakness Endocrine: No: Unexplained Weight Gain, Unexplained Weight Loss *Physical Exam - Vital Signs 07/01/18 04:48 Exam is unchanged from prior as follows: GENERAL: appears disheveled, a bit unkempt, thin but nourished, A/Ox4, no acute distress, speaking in full sentences but with slightly slurred speech, appears a bit intoxicated possibly d/t versed given previously, answers questions appropriately HEENT: PERRLA, EOMI, moist mucous membranes, no posterior pharyngeal erythema, no tonsillar swelling or exudates, no cervical lymphadenopathy NECK: No midline ttp, no spinal stepoff or deformity, full ROM, supple CARDIOVASCULAR: Regular rate and rhythm, normal S1S2, MGR, radial and DP pulses 2+ and symmetric, capillary refill <2 seconds, extremities warm and well- perfused Chest wall: Normal appearance, no rash, no bruising, no costal stepoff or deformity, nontender to compression LUNGS/RESPIRATORY: No respiratory distress, normal and symmetric chest movements during respirations, lungs CTA bilaterally, equal breath sounds, no cyanosis, no nail clubbing GI/ABDOMEN: Normal symmetric appearance, normoactive bowel sounds, soft, no tenderness to palpation, no midline pulsatile masses, no palpated organomegaly BACK: No midline ttp or stepoff or deformity of thoracic or lumbar spine EXTREMITIES: distal pulses 2+, warm and well-perfused, no LE edema SKIN: Track banerjee RUE, skin otherwise warm and dry, no pallor, no jaundice, no bruising, no rash, no skin breakdown, no cuts, no lesions NEUROLOGICAL: GCS 15, CN II-XII grossly intact, ambulating with a bit antalgic gait and unsteady on her feet, moving all extremities, 5/5 strength proximally and distally, no facial droop, no decreased sensation Medical Decision Making - Medical Decision Making Vital Signs Temperature 97.9 F 07/01/18 04:00 Pulse Rate 102 H 07/01/18 04:00 Respiratory Rate 16 07/01/18 04:00 Blood Pressure 146/84 07/01/18 04:00 O2 Sat by Pulse Oximetry (%) 96 07/01/18 04:00 07/01/18 04:05 Patient in ambulance bay trying to leave. Security is attempting to de-escalate. Patient appears intoxicated, unsteady on her feet. She is unable to be safely discharged outside at this time. She also cannot be taken back to [facility] or anywhere by EMS. 07/01/18 04:10 Patient tipping over ED equipment on the way to her ED bed. However she is now amenable to getting into ED bed. 07/01/18 04:30 RN fitting room supervisor in to see the patient and care team; appreciate the assistance. 07/01/18 05:[address] head, awaiting official read. She notes all-over body aches/pains typical of her withdrawal sxs. 07/01/18 06:38 Patient keeps walking over to RN station and MD station asking for medication. She wants medication to help her sleep. She is given the option of benadryl or ambien and chooses ambien. 07/01/18 07:00 No repeat seizure-like episodes in the ED. Workup is not concerning for emergency-level pathology at this time. The patient is sleeping at this time, will be re-assessed after 8 am. Transport will not be available until after 8 am. Patient's care endorsed to [facility] day shift team at the end of my shift. *DC/Admit/Observation/Transfer Diagnosis at time of Disposition: Opioid dependence with withdrawal, Benzodiazepine dependence, IV drug abuse, Seizure Alcohol dependence Qualifiers: Substance use status: unspecified alcohol-induced disorder Qualified Code(s): F10.29 - Alcohol dependence with unspecified alcohol-induced disorder - Discharge Dispostion Disposition: ASSISTED FACILITY Condition at time of disposition: Stable Decision to Admit order: No - Referrals Ref[place] [facility] [place] Group] - Patient Instructions Additional Instructions: YOU WERE SEEN IN THE ER FOR A REPORT OF A SEIZURE-LIKE EPISODE IN THE AMBULANCE ON YOUR WAY BACK TO [facility]. WE DID AN EXAM, IMAGING STUDIES, AND GAVE YOU A MEDICATION TO HELP YOU SLEEP YOU REQUESTED. AFTER OUR ASSESSMENT, WE DO NOT BELIEVE YOU ARE HAVING A MEDICAL EMERGENCY AT THIS TIME, AND WE BELIEVE YOU ARE SAFE TO GO BACK TO [facility]. PLEASE CONTINUE TO TAKE YOUR SEIZURE MEDICATIONS PRESCRIBED BECAUSE IF YOU DO NOT, YOU ARE AT HIGHER RISK FOR HAVING SEIZURES WHICH CAN PUT YOU IN DANGER OF SERIOUS ACCIDENTS AND OTHER COMPLICATIONS. AVOID TRIGGERS THAT MAY CAUSE OR WORSEN YOUR SEIZURES SUCH ALCOHOL, DRUGS, DEHYDRATION, FASTING, LACK OF SLEEP, OR INTENSELY STRESSFUL SITUATIONS. PLEASE FOLLOW UP WITH YOUR REGULAR PCP DOCTOR, NEUROLOGIST, OR THE DOCTOR WHO FOLLOWS YOU FOR YOUR SEIZURE DISORDER, IN 1-3 DAYS. CALL THEIR CLINIC, TELL THEM YOU WERE SEEN IN THE ER, AND TELL THEM YOU NEED A FOLLOW-UP. IF YOU HAVE ANY NEW OR WORSENING SYMPTOMS, PLEASE COME BACK TO THE ER AT ANY TIME (24 HOURS A DAY). IF YOU ARE HAVING SEVERE OR LIFE THREATENING SYMPTOMS, OR SYMPTOMS THAT MAKE IT UNSAFE TO DRIVE OR HAVE SOMEONE DRIVE YOU, PLEASE CALL 911. - Post Discharge Activity
--- NOTE | 2018-07-01 06:07 | PDOC ---
Attending Attestation - Resident Resident Name: Jovita Nunez - ED Attending Attestation I have performed the following: I have examined & evaluated the patient, The case was reviewed & discussed with the resident, I agree w/resident's findings & plan - HPI HPI: 07/01/18 06:05 Pt faking her pseudoseizures in the ambulance back to [facility]. Ambulance workers were afraid and brought her back. - Physicial Exam PE: 07/01/18 06:06 Pt is walking about and she wants to return to [facility] - Medical Decision Making 07/01/18 06:05 Patient Name: DO THOMAS THIS IS A PRELIMINARY REPORT FROM [facility]AGING [facility]ISUAL [facility] MANAGER DATE OF SERVICE: 2018-07-01 05:19:21 IMAGES: 135 EXAM: HEAD CT WITHOUT CONTRAST HISTORY: Trauma COMPARISON: None. FINDINGS: Normal brain. No acute intracranial abnormality. No hemorrhage. No visible infarct or mass. Osseous structures are intact
[2018-07-01 06:37] VITALS: BMI 21.6
[2018-07-01] MEDS ORDERED: ZOLPIDEM TARTRATE 5 MG TABLET PO ONE (06:37)
[2018-07-01] MEDS ORDERED: ZOLPIDEM TARTRATE 5 MG TABLET ONE (06:43)
[2018-07-01] MEDS ORDERED: diazePAM 5 MG TABLET PO ONE (07:57)
[2018-07-01] MEDS ORDERED: diazePAM 5 MG TABLET ONE (07:59)
[2018-07-01 08:10] VITALS: BP 120/87; PULSE 74; TEMP 97.7
--- NOTE | 2018-07-01 08:36 | PDOC ---
*Physical Exam - Vital Signs Last Vital Signs Temp Pulse Resp BP Pulse Ox 97.7 F 74 16 120/87 100 07/01/18 08:09 07/01/18 08:09 07/01/18 08:09 07/01/18 08:09 07/01/18 08:09 ED Treatment Course - Medications Given in the ED: ED Medications Discontinued Medications Generic Name Dose Route Start Last Admin Trade Name Allyn PRN Reason Stop Dose Admin Diazepam 5 mg 07/01/18 07:57 07/01/18 08:04 Valium - PO 07/01/18 07:58 5 mg ONCE ONE Administration Zolpidem Tartrate 5 mg 07/01/18 06:37 07/01/18 08:16 Ambien - PO 07/01/18 06:38 Not Given ONCE ONE Medical Decision Making - Medical Decision Making Patient was noted to be hyperactive and screaming saying she is in pain and about to withdraw. We gave her 5 mg of Valium. She is lying comfortably in bed and ready for DC. We are sending her back to [facility]. *DC/Admit/Observation/Transfer Diagnosis at time of Disposition: Opioid dependence with withdrawal, Benzodiazepine dependence, IV drug abuse, Seizure Alcohol dependence Qualifiers: Substance use status: unspecified alcohol-induced disorder Qualified Code(s): F10.29 - Alcohol dependence with unspecified alcohol-induced disorder - Discharge Dispostion Disposition: INTERMEDIATE FACILITY Condition at time of disposition: Stable - Referrals Referrals: [facility] [place] [facility] [place] [Provider Group] - Patient Instructions Additional Instructions: YOU WERE SEEN IN THE ER FOR A REPORT OF A SEIZURE-LIKE EPISODE IN THE AMBULANCE ON YOUR WAY BACK TO [facility]. WE DID AN EXAM, IMAGING STUDIES, AND GAVE YOU A MEDICATION TO HELP YOU SLEEP YOU REQUESTED. AFTER OUR ASSESSMENT, WE DO NOT BELIEVE YOU ARE HAVING A MEDICAL EMERGENCY AT THIS TIME, AND WE BELIEVE YOU ARE SAFE TO GO BACK TO [facility]. PLEASE CONTINUE TO TAKE YOUR SEIZURE MEDICATIONS PRESCRIBED BECAUSE IF YOU DO NOT, YOU ARE AT HIGHER RISK FOR HAVING SEIZURES WHICH CAN PUT YOU IN DANGER OF SERIOUS ACCIDENTS AND OTHER COMPLICATIONS. AVOID TRIGGERS THAT MAY CAUSE OR WORSEN YOUR SEIZURES SUCH ALCOHOL, DRUGS, DEHYDRATION, FASTING, LACK OF SLEEP, OR INTENSELY STRESSFUL SITUATIONS. PLEASE FOLLOW UP WITH YOUR REGULAR PCP DOCTOR, NEUROLOGIST, OR THE DOCTOR WHO FOLLOWS YOU FOR YOUR SEIZURE DISORDER, IN 1-3 DAYS. CALL THEIR CLINIC, TELL THEM YOU WERE SEEN IN THE ER, AND TELL THEM YOU NEED A FOLLOW-UP. IF YOU HAVE ANY NEW OR WORSENING SYMPTOMS, PLEASE COME BACK TO THE ER AT ANY TIME (24 HOURS A DAY). IF YOU ARE HAVING SEVERE OR LIFE THREATENING SYMPTOMS, OR SYMPTOMS THAT MAKE IT UNSAFE TO DRIVE OR HAVE SOMEONE DRIVE YOU, PLEASE CALL 911. - Post Discharge Activity
== END 2018-07-01 09:21 ==
LOC: JER 03:50
DX: F11.23 Opioid dependence with withdrawal (principal); F10.230 Alcohol dependence with withdrawal, uncomplicated; F14.20 Cocaine dependence, uncomplicated; F12.20 Cannabis dependence, uncomplicated; F31.9 Bipolar disorder, unspecified; F17.210 Nicotine dependence, cigarettes, uncomplicated; Z88.0 Allergy status to penicillin
CPT/HCPCS: 70450-TC; 99283-25

== ENCOUNTER 2018-07-01 15:28 | Emergency (ER) | payer OTHER ==
[2018-07-01 16:09] VITALS: BP 107/61; PULSE 85; TEMP 98
--- NOTE | 2018-07-01 17:59 | PDOC ---
History of Present Illness - General Chief Complaint: Seizure Stated Complaint: SEIZURE Time Seen by Provider: 07/01/18 15:45 Past History - Past Medical History Allergies/Adverse Reactions: Allergies Allergy/AdvReac Type Severity Reaction Status Date / Time penicillin G Allergy Severe Hives Verified 07/01/18 16:01 Home Medications: Ambulatory Orders Gabapentin 300 cap PO BID 06/30/18 Keppra - 500 tab PO BID 06/30/18 Anemia: No Asthma: No Cancer: No Cardiac Disorders: No CVA: No COPD: No CHF: No Dementia: No Diabetes: No GI Disorders: No Disorders: No HTN: No Hypercholesterolemia: No Kidney Stones: No Liver Disease: No Psychiatric Problems: Yes (DEPRESSION, BIPOLAR) Seizures: No Thyroid Disease: No - Surgical History Abdominal Surgery: No Appendectomy: No Cardiac Surgery: No Cholecystectomy: No Lung Surgery: No Neurologic Surgery: No Orthopedic Surgery: No - Reproductive History PID: No - Immunization History Immunization Up to Date: Yes - Suicide/Smoking/Psychosocial Hx Smoking History: Current every day smoker Have you smoked in the past 12 months: No Number of Cigarettes Smoked Daily: 20 Information on smoking cessation initiated: No 'Breaking Loose' booklet given: 06/29/18 Hx Alcohol Use: No Drug/Substance Use Hx: No Substance Use Type: Alcohol, Cocaine, Heroin, Tranquilizers Hx Substance Use Treatment: Yes (06/21/18 to 06/22/18 in [place] not completed) *Physical Exam - Vital Signs Last Vital Signs Temp Pulse Resp BP Pulse Ox 98.0 F 85 16 107/61 100 07/01/18 15:30 07/01/18 15:30 07/01/18 15:30 07/01/18 15:30 07/01/18 15:30 Medical Decision Making - Medical Decision Making 07/01/18 18:05 seen here earlier today lynne gave saline givn .5mg sitter/security 07/01/18 18:28 ithrat spoken to *DC/Admit/Observation/Transfer Diagnosis at time of Disposition: Benzodiazepine dependence Alcohol dependence Qualifiers: Substance use status: uncomplicated Qualified Code(s): F10.20 - Alcohol dependence, uncomplicated - Discharge Dispostion Disposition: HALFWAY FACILITY Condition at time of disposition: Stable Decision to Admit order: No - Referrals - Patient Instructions Additional Instructions: You were seen here today for seizure like activity. You were given a dose of Ativan. Your lab work earlier today was normal. Please continue to take your anti-seizure medications. Please come back to the ED if: you continue to have seizures, you lose consciousness, or if any new concerning symptom develops. - Post Discharge Activity
[2018-07-01] MEDS ORDERED: LORazepam 0.5 MG TABLET PO ONE (18:02)
--- NOTE | 2018-07-01 18:09 | PDOC ---
Attending Attestation - Resident Resident Name: Naz Marks - ED Attending Attestation I have performed the following: I have examined & evaluated the patient, The case was reviewed & discussed with the resident, I agree w/resident's findings & plan, Exceptions are as noted - HPI HPI: 07/01/18 18:06 42-year-old female with a known history of seizures and on Keppra had a brief seizure-like episode. This patient was just seen here earlier today for the same thing. Her Keppra levels have been sent out to request. Patient is alert and oriented 3. Patient states that she has seizures because she is just not getting enough Ativan and she is requesting Ativan at this time -her ct scan head done earlier today was negative for any acute intracranial pathology -labs reviewed -negative preg -she has no gross focal neuro deficits no seizure activity at this time - Physicial Exam PE: 07/01/18 18:09 wnwd 22 yo female in no acute distress head no scalp lacerations eyes blaine eomi neck supple lungs cta abd soft,nontender ext no cellulitis neuro axox3,moving all extremities 07/01/18 18:20 - Medical Decision Making 07/01/18 18:43 no seizure activity during observation period pt states she doesn't like the way keppra makes her feel and she states she is withdrawing spoke to pt about importance of taking her seizure medications and she eventually consented to take her medicine
[2018-07-01] MEDS ORDERED: levETIRAcetam 500 MG TABLET (FP) PO ONE ×2 (18:16→18:36)
[2018-07-01] MEDS ORDERED: LORazepam 0.5 MG TABLET ONE (18:36)
== END 2018-07-01 19:28 | disposition other institution (70) ==
LOC: JER 15:28
DX: F44.5 Conversion disorder with seizures or convulsions (principal); F13.20 Sedative, hypnotic or anxiolytic dependence, uncomplicated; F31.9 Bipolar disorder, unspecified; F11.20 Opioid dependence, uncomplicated; F10.20 Alcohol dependence, uncomplicated; F14.20 Cocaine dependence, uncomplicated
CPT/HCPCS: 99282-25

== ENCOUNTER 2018-11-19 16:04 | Inpatient (IN) | payer OTHER ==
[2018-11-19 19:07] VITALS: BMI 18.9
[2018-11-19] MEDS ORDERED: MELATONIN 5 MG TABLETS PO PRN (22:00)
--- NOTE | 2018-11-19 22:27 | HP ---
COWS - Scale Resting Pulse: 0= [place] 80 or Below Sweatin=Flushed/Facial Moisture Restless Observation: 0= Sits Still Pupil Size: 0= Normal to Room Light Bone or Joint Aches: 4=Acute Joint/Muscle Pain Runny Nose/ Eye Tearin= Runny Nose/Eyes GI Upset > 30mins: 3= Vomiting/Diarrhea (vomiting x 2, diarrhea x 2) Tremor Observation: 2= Slight Tremor Visible Yawning Observation: 0= None Anxiety or Irritability: 2=Irritable/Anxious Goose Flesh Skin: 0=Smooth Skin COWS Score: 15 CIWA Score - Admission Criteria [facility] Guidelines: Admission for Medically Managed Detox: Requires at least one of the followin. CIWA greater than 12 2. Seizures within the past 24 hours 3. Delirium tremens within the past 24 hours 4. Hallucinations within the past 24 hours 5. Acute intervention needed for co occurring medical disorder 6. Acute intervention needed for co occurring psychiatric disorder 7. Severe withdrawal that cannot be handled at a lower level of care (continued vomiting, continued diarrhea, abnormal vital signs) requiring intravenous medication and/or fluids 8. Admission ROS [facility] Chief Complaint: Heroin and alcohol withdrawal symptoms Allergies/Adverse Reactions: Allergies Allergy/AdvReac Type Severity Reaction Status Date / Time penicillin G Allergy Severe Hives Verified 11/20/18 00:02 History of Present Illness: 23 years old female with a 9 years of heroin dependence and 15 years of alcohol dependence is seeking admission to detox. Patient has been in previous detox and reports insignificant period of sobriety. She has medical history of depression and anxiety. Denied suicide attempt and suicidal ideation at this time. Patient has been disruptive on previous admissions as per attached incidents. Importance of adhering to rules an d regulations of the facility reinforced. Patient states that she will be respectful and will abide by the rules and regulations as stipulated. Patient gave a written promise to behave during this admission. Exam Limitations: No Limitations - Ebola screening Have you traveled outside of the country in the last 21 days: No Have you had contact with anyone from an Ebola affected area: No Have you been sick,other than usual withdrawal symptoms: No - Review of Systems Constitutional: Chills, Night Sweats, Changes in sleep EENT: reports: Sinus Pressure Respiratory: reports: No Symptoms reported Cardiac: reports: No Symptoms Reported GI: reports: Diarrhea, Nausea, Poor Appetite, Poor Fluid Intake, Vomiting, Abdominal cramping : reports: No Symptoms Reported Musculoskeletal: reports: Back Pain, Joint Pain, Muscle Pain, Neck Pain Integumentary: reports: Dryness, Flushing Neuro: reports: Headache, Tremors Endocrine: reports: No Symptoms Reported Hematology: reports: No Symptoms Reported Psychiatric: reports: Orientated x3, Anxious, Depressed Other Systems: Reviewed and Negative Patient History - Patient Medical History Hx Anemia: No Hx Asthma: No Hx Chronic Obstructive Pulmonary Disease (COPD): No Hx Cancer: No Hx Cardiac Disorders: No Hx Congestive Heart Failure: No Hx Hypertension: No Hx Hypercholesterolemia: No Hx Pacemaker: No HX Cerebrovascular Accident: No Hx Seizures: No Hx Dementia: No Hx Diabetes: No Hx Gastrointestinal Disorders: No Hx Liver Disease: No Hx Genitourinary Disorders: No Hx Sexually Transmitted Disorders: No Hx Renal Disease (ESRD): No Hx Thyroid Disease: No Hx Human Immunodeficiency Virus (HIV): No (last 01/10 negative) Hx Hepatitis C: No Hx Depression: Yes (Not on medication) Hx Suicide Attempt: No Hx Bipolar Disorder: No Hx Schizophrenia: No Other Medical History: ANXIETY - Not on medication - Patient Surgical History Past Surgical History: Yes Hx Neurologic Surgery: No Hx Cataract Extraction: No Hx Cardiac Surgery: No Hx Lung Surgery: No Hx Breast Surgery: No Hx Breast Biopsy: No Hx Abdominal Surgery: No Hx Appendectomy: No Hx Cholecystectomy: No Hx Genitourinary Surgery: No Hx Section: No Hx Orthopedic Surgery: No Other Surgical History: s/p surgery for abscess left thigh - PPD History Date: 07/01/18 - Reproductive History Last Menstrual Period: 06/11/18 - Smoking Cessation Smoking history: Current every day smoker Have you smoked in the past 12 months: No Aproximately how many cigarettes per day: 20 Hx Chewing Tobacco Use: No Initiated information on smoking cessation: Yes 'Breaking Loose' booklet given: 11/19/18 - Substance & Tx. History Hx Alcohol Use: Yes Hx Substance Use: Yes Substance Use Type: Alcohol, Heroin, Opiates Hx Substance Use Treatment: Yes ([facility]) Family Disease History - Family Disease History Family History: Denies Admission Physical Exam BHS - Vital Signs Vital Signs: Vital Signs - 24 hr 11/19/18 19:04 Temperature 96.8 F L Pulse Rate 79 Respiratory 18 Rate Blood Pressure 142/69 - Physical General Appearance: Yes: Moderate Distress, Tremorous, Anxious HEENTM: Yes: EOMI, Normal ENT Inspection, Normal Voice, PIYUSH Respiratory: Yes: Lungs Clear, Normal Breath Sounds, No Respiratory Distress Neck: Yes: Supple Breast: Yes: Breast Exam Deferred Cardiology: Yes: Regular Rhythm, Regular Rate Abdominal: Yes: Normal Bowel Sounds Genitourinary: Yes: Within Normal Limits Back: Yes: Normal Inspection Musculoskeletal: Yes: Back pain, Muscle Pain Extremities: Yes: Tremors Neurological: Yes: Alert, Normal Mood/Affect Integumentary: Yes: Warm Lymphatic: Yes: Within Normal Limits - Diagnostic (1) Alcohol dependence with uncomplicated withdrawal Current Visit: Yes Status: Chronic (2) Benzodiazepine dependence Current Visit: Yes Status: Chronic (3) Cannabis dependence Current Visit: Yes Status: Chronic (4) Nicotine dependence Current Visit: Yes Status: Chronic Qualifiers: Nicotine product type: cigarettes Substance use status: uncomplicated Qualified Code(s): F17.210 - Nicotine dependence, cigarettes, uncomplicated (5) Opioid dependence with withdrawal Current Visit: Yes Status: Chronic (6) Seizure Current Visit: Yes Status: Chronic Cleared for Admission [facility] - Detox or Rehab [facility] Level of Care: Medically Managed Detox Regimen/Protocol: Methadone/Valium [facility] Breath Alcohol Content Breath Alcohol Content: 0 Urine Pregancy Test - Result Urine Test Results: Negative- NO Line Present Urine Drug Screen - Results Drug Screen Negative: No Urine Drug Screen Results: THC-Marijuana, OPI-Opiates, BZO-Benzodiazepines, FEN- Fentanyl Inpatient Rehab Admission - Rehab Decision to Admit Inpatient rehab admission?: No
[2018-11-19] MEDS ORDERED: LOPERAMIDE HCL 2 MG CAPSULE PO PRN (22:41)
[2018-11-19] MEDS ORDERED: MAGNESIUM HYDROX 2400MG/30ML ORAL SUSPENSION 30 ML CUP PO PRN (22:41)
[2018-11-19] MEDS ORDERED: guaiFENesin/D-METHORPHAN HB 10 ML UNIT-DOSE CUPS PO PRN (22:41)
[2018-11-19] MEDS ORDERED: P-EPHED 60MG/TRIPROLIDI 2.5MG TABLET PO PRN (22:41)
[2018-11-19] MEDS ORDERED: NICOTINE POLACRILEX 2 MG GUM BC PRN (22:41)
[2018-11-19] MEDS ORDERED: MAGNESIUM CITRATE 300 ML BOTTLE PO PRN (22:41)
[2018-11-19] MEDS ORDERED: IBUPROFEN 400 MG TABLET (FP) PO PRN (22:41)
[2018-11-19] MEDS ORDERED: ACETAMINOPHEN 325 MG TABLET (FP) PO PRN (22:41)
[2018-11-19] MEDS ORDERED: MAG HYDROX/AL HYDROX/SIMETH 30 ML UNIT-DOSE CUP PO PRN (22:41)
[2018-11-19] MEDS ORDERED: MENTHOL/PHENOL 1 EACH UD MM PRN (22:41)
[2018-11-20] MEDS ORDERED: METHADONE HCL 10 MG TABLET (FOR DETOX USE ONLY) PO ONE ×3 (01:00→23:00)
[2018-11-20] MEDS ORDERED: diazePAM 5 MG TABLET PO ONE (01:00)
[2018-11-20] MEDS: diazePAM 5 MG TABLET PO SCH ×3 (06:37→23:10)
[2018-11-20] MEDS: diazePAM 5 MG TABLET PO PRN ×4 (06:55→22:05)
[2018-11-20] MEDS: PRENATAL VITAMINS W/ FOLIC ACID TABLET (FP) PO SCH (10:09)
[2018-11-20] MEDS: NICOTINE 14 MG/24 HOURS TOPICAL PATCH TD SCH (10:12)
--- NOTE | 2018-11-20 11:35 | PN ---
[facility] CIWA - CIWA Score Nausea/Vomitin-No Nausea/No Vomiting Muscle Tremors: 3 Anxiety: 4-Mod. Anxious/Guarded Agitation: 2 Paroxysmal Sweats: 3 Orientation: 0-Oriented Tacttile Disturbances: 2-Mild Itch/Numbness/Burn Auditory Disturbances: 1-Very Mild Visual Disturbances: 0-None Headache: 3-Moderate CIWA-Ar Total Score: 18 BHS COWS - Scale Resting Pulse: 0= [place] 80 or Below Sweatin= Chills/Flushing Restless Observation: 1= Difficult to Sit Still Pupil Size: 0= Normal to Room Light Bone or Joint Aches: 4=Acute Joint/Muscle Pain Runny Nose/ Eye Tearin= None GI Upset > 30mins: 2= Nausea/Diarrhea Tremor Observation of Outstretched Hands: 2= Slight Tremor Visible Yawning Observation: 1= 1-2x During Session Anxiety or Irritability: 2=Irritable/Anxious Goose Flesh Skin: 3=Piloerection COWS Score: 16 BHS Progress Note (SOAP) Subjective: Sweating, Tremors Body Aches, Vomiting, Constipation, H/A, Interrupted Sleep. Objective: PATIENT A & O X 3, OBSERVED AMBULATING ON UNIT. IN NO ACUTE DISTRESS. 11/20/18 11:33 Vital Signs Temperature 97.8 F 11/20/18 09:39 Pulse Rate 57 L 11/20/18 09:39 Respiratory Rate 18 11/20/18 09:39 Blood Pressure 114/69 11/20/18 09:39 O2 Sat by Pulse Oximetry (%) ADMISSION LAB RESULTS PENDING. 11/20/18 11:33 Assessment: 11/20/18 11:33 WITHDRAWAL SYMPTOMS. Plan: CONTINUE DETOX. INCREASE DAILY PO FLUID INTAKE. PRN FLEXERIL FOR BODY ACHES/ MUSCLE SPASMS. PRN TIGAN IM FOR NAUSEA / VOMITING.
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
[2018-11-20 12:42] LABS: HEMATOCRIT 40.6 % (32.4-45.2); HEMOGLOBIN 13.7 GM/dL (10.7-15.3); MCH 29.3 pg (25.7-33.7); MCHC 33.7 g/dl (32.0-36.0); MEAN CELL VOLUME 86.9 fl (80-96); MEAN PLT VOLUME 7.5 fl (7.5-11.1); PLATELET COUNT 307 K/MM3 (134-434); RBC 4.68 M/mm3 (3.60-5.2); RDW 13.9 % (11.6-15.6); WHITE BLOOD COUNT 6.3 K/mm3 (4.0-10.0)
[2018-11-20 12:48] LABS: ALK PHOS 106 U/L (45-117); ANION GAP 8 MMOL/L (8-16); BILIRUBIN,TOTAL 0.4 mg/dL (0.2-1); BLOOD UREA NITROGEN 7 mg/dL (7-18); CALCIUM 9.5 mg/dL (8.5-10.1); CHLORIDE 101 mmol/L (98-107); CO2 30 mmol/L (21-32); CREATININE 0.7 mg/dL (0.55-1.3); GLUCOSE,RANDOM 86 mg/dL (74-106); SGOT/AST 18 U/L (15-37); SGPT/ALT 22 U/L (13-61); SODIUM 138 mmol/L (136-145); TOT PROT 8.3 g/dl (6.4-8.2)
[2018-11-20] MEDS: CYCLOBENZAPRINE HCL 10 MG TABLET (FP) PO PRN (13:58)
[2018-11-20] MEDS: TRIMETHOBENZAMIDE HCL 200MG/2ML INJ IM PRN (16:16)
--- NOTE | 2018-11-20 17:15 | PN ---
[facility] Progress Note Note: WHEN ASKED, PATIENT REPORTS THAT SHE TAKES GABAPENTIN, 900 MG PO TID FOR ANXIETY AND FOR PREVENTION OF SEIZURES. PATIENT UNABLE TO GIVE NAME OF PHARMACY WHERE SHE LAST FILLED MEDICATION BECAUSE "SHE HAS BEEN GETTING HIGH." PATIENT ALSO REPORTS THAT SHE HAS BEEN TAKING GABAPENTIN " NEEDED" UP UNTIL 1-2 DAYS BEFORE THIS DETOX ADMISSION. PHARMACIST CANDE AT [facility] ([place], [place], LISTED IN [facility] PATIENT'S HOME PHARMACY), PATIENT LAST FILLED PRESCRIPTION THERE FOR GABAPENTIN, 100 MG PO TID, LAST FILLED IN 12/2017. NO PRESCRIPTION FOR GABAPENTIN NOTED IN EXTERNAL OUTPATIENT MEDICATION PRESCRIPTION REVIEW IN [facility]. GABPENTIN, 300 MG PO BID LISTED IN PATIENT'S HOME MEDICATION LIST PER [facility] DETOX ADMISSION. MEDICATION NOT RECONCILED ON ADMISSION. WILL RECONCILE NOW. Edith ARORA NP
[2018-11-20] MEDS ORDERED: BACLOFEN 10 MG TABLET (FP) PO ONE (21:01)
--- NOTE | 2018-11-20 21:02 | PN ---
[facility] Progress Note Note: Vital Signs Temperature 97.8 F 11/20/18 17:40 Pulse Rate 85 11/20/18 17:40 Respiratory Rate 18 11/20/18 17:40 Blood Pressure 119/78 11/20/18 17:40 O2 Sat by Pulse Oximetry (%) c/o of generalized body aches secondary to withdrawal no relief with ibuprofen one time dose of baclofen increase po fluids ambulate continue detox continue to monitor
[2018-11-20] MEDS: GABAPENTIN 300 MG CAPSULE (FP) PO SCH (22:04)
[2018-11-20] MEDS: THIAMINE HCL 100 MG TABLET (FP) PO SCH ×2 (22:04→22:12)
[2018-11-20] MEDS ORDERED: LORazepam 2 MG/ML SDV VIAL ONE (22:49)
[2018-11-20] MEDS ORDERED: LORazepam 2 MG/ML SDV VIAL IM ONE (23:07)
--- NOTE | 2018-11-20 23:11 | PN ---
[facility] Progress Note Note: Patient had intermittent multiple grand mal seizures in her room. She fell coming out of the bathroom. Fall was unwitnessed. She has medical history of 2L/ min. eizures and report that she has not been taking her medications. Patient is being transferred to ER for further evaluation. Endorsed to Dr. Zuniga Vital Signs Temperature 96.7 F L 11/20/18 21:29 Pulse Rate 81 11/20/18 21:29 Respiratory Rate 16 11/20/18 21:29 Blood Pressure 110/74 11/20/18 21:29 O2 Sat by Pulse Oximetry (%) Action: Ativan 1 mg intramuscular ordered Oxygen at 2 L/min. Fall protocol # 1 initiated
[2018-11-21] MEDS: CYCLOBENZAPRINE HCL 10 MG TABLET (FP) PO PRN (02:57)
[2018-11-21] MEDS: diazePAM 5 MG TABLET PO PRN ×2 (02:58→09:12)
[2018-11-21] MEDS: diazePAM 5 MG TABLET PO SCH ×2 (06:00→15:32)
[2018-11-21] MEDS: GABAPENTIN 300 MG CAPSULE (FP) PO SCH (09:12)
[2018-11-21] MEDS: PRENATAL VITAMINS W/ FOLIC ACID TABLET (FP) PO SCH (09:14)
[2018-11-21] MEDS: TRIMETHOBENZAMIDE HCL 200MG/2ML INJ IM PRN (09:30)
[2018-11-21 09:44] VITALS: BP 122/77; PULSE 81; TEMP 97.3
[2018-11-21] MEDS ORDERED: METHADONE HCL 10 MG TABLET (FOR DETOX USE ONLY) PO SCH (10:00)
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
[2018-11-21] MEDS: NICOTINE 14 MG/24 HOURS TOPICAL PATCH TD SCH (15:32)
[2018-11-22] MEDS ORDERED: METHADONE HCL 5 MG TABLET (FOR DETOX USE ONLY) PO SCH (10:00)
[2018-11-22] MEDS ORDERED: diazePAM 5 MG TABLET PO SCH (10:00)
[2018-11-24] MEDS ORDERED: METHADONE HCL 10 MG TABLET (FOR DETOX USE ONLY) PO SCH (10:00)
[2018-11-24] MEDS ORDERED: diazePAM 5 MG TABLET PO SCH (10:00)
[2018-11-25] MEDS ORDERED: METHADONE HCL 5 MG TABLET (FOR DETOX USE ONLY) PO SCH (06:00)
== END 2018-11-21 11:53 | disposition left against medical advice (07) | DRG 773 ==
LOC: YASAS 16:04 → Y3N 23:36
PROVIDERS: ADMIT Surgery; ATTEND Surgery
PROC: HZ2ZZZZ Detoxification Services for Substance Abuse Treatment (ICD-10-PCS; principal; 2018-11-19)
DX: F11.23 Opioid dependence with withdrawal (principal); F10.230 Alcohol dependence with withdrawal, uncomplicated; F12.20 Cannabis dependence, uncomplicated; F17.213 Nicotine dependence, cigarettes, with withdrawal; F19.24 Other psychoactive substance dependence with psychoactive substance-induced mood disorder; F31.9 Bipolar disorder, unspecified; F43.10 Post-traumatic stress disorder, unspecified; F41.9 Anxiety disorder, unspecified; G47.00 Insomnia, unspecified; R56.9 Unspecified convulsions; R63.4 Abnormal weight loss; Z68.1 Body mass index [BMI] 19.9 or less, adult; F91.8 Other conduct disorders; Z91.19 Patient's noncompliance with other medical treatment and regimen; Z88.0 Allergy status to penicillin
CPT/HCPCS: 36415; 80053; 85027; 86593; J0475

== ENCOUNTER 2018-11-20 23:30 | Emergency (ER) | payer OTHER ==
[2018-11-20 23:41] VITALS: TEMP 98.3; BMI 18.9
--- NOTE | 2018-11-21 02:08 | PDOC ---
History of Present Illness - General Chief Complaint: Seizure Stated Complaint: SEIZURES Time Seen by Provider: 11/21/18 00:09 History Source: Patient, EMS Exam Limitations: No Limitations - History of Present Illness Timing/Duration: reports: 1 hour Severity: Yes: mild (pt reported a unwitnessed seizure at [facility],no head trauma on exam ) Past History - Past Medical History Allergies/Adverse Reactions: Allergies Allergy/AdvReac Type Severity Reaction Status Date / Time penicillin G Allergy Severe Hives Verified 11/20/18 00:02 Home Medications: Ambulatory Orders Gabapentin 300 cap PO BID 06/30/18 Keppra - 500 tab PO BID 06/30/18 Duloxetine HCl [Cymbalta -] 30 mg PO BID #30 capsule. 07/02/18 Duloxetine HCl [Cymbalta -] 40 mg PO DAILY #30 capsule. 07/02/18 Duloxetine HCl [Cymbalta -] 40 mg PO ONCE #2 capsule. 07/02/18 Quetiapine Fumarate [Seroquel] 100 mg PO TID #90 tablet 07/02/18 Quetiapine Fumarate [Seroquel] 100 mg PO TID #90 tablet 07/02/18 Sulfamethoxazole/Trimethoprim [Bactrim DS -] 1 each PO BID #10 tablet 07/02/18 levETIRAcetam [Keppra -] 500 mg PO BID #60 tablet 07/02/18 Anemia: No Asthma: No Cancer: No Cardiac Disorders: No CVA: No COPD: No CHF: No Dementia: No Diabetes: No GI Disorders: No Disorders: No HTN: No Hypercholesterolemia: No Kidney Stones: No Liver Disease: No Psychiatric Problems: Yes (DEPRESSION, BIPOLAR) Seizures: No Thyroid Disease: No - Surgical History Abdominal Surgery: No Appendectomy: No Cardiac Surgery: No Cholecystectomy: No Lung Surgery: No Neurologic Surgery: No Orthopedic Surgery: No - Reproductive History PID: No - Immunization History Immunization Up to Date: Yes - Suicide/Smoking/Psychosocial Hx Smoking History: Never smoked Have you smoked in the past 12 months: No Number of Cigarettes Smoked Daily: 20 Information on smoking cessation initiated: No 'Breaking Loose' booklet given: 11/19/18 Hx Alcohol Use: No Drug/Substance Use Hx: No Substance Use Type: Alcohol, Heroin, Opiates Hx Substance Use Treatment: Yes ([facility]) Review of Systems - Review of Systems Able to Perform ROS?: Yes Is the patient limited [place] proficient: No Constitutional: No: Symptoms Reported, See HPI, Chills, Diaphoresis, Fever, Loss of Appetite, Malaise, Night Sweats, Weakness, Weight Stable, Unintentional Wgt. Loss, Unexplained wgt Loss, Other HEENTM: No: Symptoms Reported, See HPI, Eye Pain, Blurred Vision, Tearing, Recent change in vision, Double Vision, Cataracts, Ear Pain, Ocular Prothesis, Ear Discharge, Nose Pain, Nose Congestion, Tinnitus, Nose Bleeding, Hearing Loss , Throat Pain, Throat Swelling, Mouth Pain, Dental Problems, Difficulty Swallowing, Mouth Swelling, Other Respiratory: No: Symptoms reported, See HPI, Cough, Orthopnea, Shortness of Breath, SOB with Exertion, SOB at Rest, Stridor, Wheezing, Productive cough, Hemoptysis, Other Cardiac (ROS): No: Symptoms Reported, See HPI, Chest Pain, Edema, Irregular Heart Rate, Lightheadedness, Palpitations, Syncope, Chest Tightness, Other ABD/GI: No: Symptoms Reported, See HPI, Abdominal Distended, Abd. Pain w/ defecation, Blood Streaked Bowels, Constipated, Diarrhea, Difficulty Swallowing , Nausea, Poor Appetite, Poor Fluid Intake, Rectal Bleeding, Vomiting, Indigestion, Abdominal cramping, Tarry Stools, Other : No: Symptoms Reported, See HPI, Burning, Dysuria, Discharge, Frequency, Flank Pain, Hematuria, Incontinence, Pain, Urgency, Testicular Mass, Testicular Swelling, Lesions, Testicular Pain, Other Musculoskeletal: No: Symptoms Reported, See HPI, Back Pain, Gout, Joint Pain, Joint Swelling, Muscle Pain, Muscle Weakness, Neck Pain, Joint Stiffness, Other Neurological: Yes: Other (pt said she had a seizure) Psychiatric: Yes: Anxiety, Emotional Problems *Physical Exam - Vital Signs Last Vital Signs Temp Pulse Resp BP Pulse Ox 98.3 F 116 H 16 125/85 106 H 11/20/18 23:37 11/20/18 23:37 11/20/18 23:37 11/20/18 23:37 11/20/18 23:37 - Physical Exam General Appearance: Yes: Thin HEENT: positive: EOMI, Normal Voice Neck: positive: Supple Respiratory/Chest: positive: Lungs Clear Cardiovascular: positive: Tachycardia Gastrointestinal/Abdominal: positive: Flat Musculoskeletal: positive: Normal Inspection Extremity: positive: Normal Inspection, Normal Range of Motion Integumentary: positive: Normal Color, Warm Neurologic: positive: Alert, Motor Strength 5/5 Moderate Sedation - Procedure Monitoring Vital Signs: Procedure Monitoring Vital Signs Temperature 98.3 F 11/20/18 23:37 Pulse Rate 116 H 11/20/18 23:37 Respiratory Rate 16 11/20/18 23:37 Blood Pressure 125/85 11/20/18 23:37 O2 Sat by Pulse Oximetry (%) 106 H 11/20/18 23:37 ED Treatment Course - ADDITIONAL ORDERS Additional order review: Laboratory Results 11/21/18 00:40 Urine HCG, Qual Negative - RADIOLOGY Radiology Studies Ordered: Category Date Time Status HEAD CT WITHOUT CONTRAST [CT] Stat CT Scan 11/21/18 01:01 Taken Medical Decision Making - Medical Decision Making 11/21/18 02:10 CAT scan of the head without contrast. Results-there is no acute pathology. The ventricular system is midline and nondilated This PATTERN is normal for the patient's age. There is no bleed, no mass, no extra-axial fluid collection *DC/Admit/Observation/Transfer Diagnosis at time of Disposition: Seizure Head trauma Qualifiers: Encounter type: initial encounter Qualified Code(s): S09.90XA - Unspecified injury of head, initial encounter - Discharge Dispostion Disposition: HOME Condition at time of disposition: Stable - Referrals - Patient Instructions Printed Discharge Instructions: DI for Closed Head Injury, DI for Seizure Disorder -- Adult - Post Discharge Activity
[2018-11-21 05:59] VITALS: BP 122/71; PULSE 77
== END 2018-11-21 02:25 | disposition home or self-care (01) ==
LOC: JER 23:30
DX: R56.9 Unspecified convulsions (principal); F31.9 Bipolar disorder, unspecified; F41.9 Anxiety disorder, unspecified; F10.10 Alcohol abuse, uncomplicated; F11.10 Opioid abuse, uncomplicated
CPT/HCPCS: 70450-TC; 84703; 99281-25